=== PATIENT | female | born 1990 | race Two or more races ===

== ENCOUNTER 2019-08-25 14:23 | Emergency (ER) | payer OTHER, SELFPAY ==
[~2019-08-25] VITALS: Ht 165.1 cm; Wt 74.0 kg
[2019-08-25 15:11] VITALS: BP 149/75
== END 2019-08-25 15:14 | disposition home or self-care (01) ==
LOC: ER 14:23
DX: Z03.818 Encounter for observation for suspected exposure to other biological agents ruled out (principal)
CPT/HCPCS: 87635; 99283; C9803